=== PATIENT | female | born 1975 | race Caucasian/White ===

== ENCOUNTER 2017-04-01 20:04 | Emergency (ER) | payer MEDICAID ==
[2017-04-01 20:04] VITALS: PULSE 51; BMI 22.6
[2017-04-01] MEDS ORDERED: Aspirin 325 mg EC Tablets PO STA (20:25)
--- NOTE | 2017-04-01 20:25 | C.PDOC ---
History Of Present Illness Patient presents to the ER with a complaint of intermittent, dull, aching, chest pain for the past 3 days. Patient is currently speaking in complete sentences; denies fever, chills, nausea, vomiting, or SOB. Time Seen by Provider: 04/01/17 20:24 Chief Complaint (Nursing): Chest Pain History Per: Patient History/Exam Limitations: no limitations Onset/Duration Of Symptoms: Days, Intermittent Episodes Current Symptoms Are (Timing): Still Present Severity: Moderate Pain Scale Rating Of: 4 Quality: Dull, Aching Associated Symptoms: denies: Nausea, Dyspnea, Diaphoresis Modifying Factors: None Exacerbating Factors: None Alleviating Factors: None Recent travel outside of the [place]: No Additional History Per: Family Past Medical History Reviewed: Historical Data, Nursing Documentation, Vital Signs Vital Signs: Last Vital Signs Temp 98 F 04/01/17 20:13 Pulse 55 L 04/01/17 21:39 Resp 20 04/01/17 21:39 BP 123/63 04/01/17 21:39 Pulse Ox 100 04/01/17 21:39 - Medical History PMH: Anemia, At[facility] DRAINAGE OF PERITONEAL CAVITY, PERCUTANEOUS APPROACH (09/21/15) EXCISION OF STOMACH, ENDO, DIAGN (09/21/15) ULTRASONOGRAPHY OF RIGHT AND LEFT HEART, TRANSESOPHAGEAL (09/21/15) Family History: States: No Known Family Hx - Social History Hx Tobacco Use: No Hx Alcohol Use: No Hx Substance Use: No - Immunization History Hx Tetanus Toxoid Vaccination: No Hx Influenza Vaccination: No Hx Pneumococcal Vaccination: No Review Of Systems Constitutional: Negative for: Fever, Chills Cardiovascular: Positive for: Chest Pain Respiratory: Negative for: Shortness of Breath Gastrointestinal: Negative for: Nausea, Vomiting Physical Exam - Physical Exam Appears: Non-toxic Skin: Warm, Dry Head: Normacephalic Eye(s): bilateral: Normal Inspection Oral Mucosa: Moist Neck: Trachea Midline, Supple Chest: Symmetrical, No Tenderness Cardiovascular: Rhythm Irregular (w/ click) Respiratory: No Rales, No Rhonchi, No Wheezing Gastrointestinal/Abdominal: Soft, No Tenderness Back: No CVA Tenderness Extremity: No Tenderness Extremity: Bilateral: Atraumatic, Normal Color And Temperature Pulses: Left Dorsalis Pedis: Normal, Right Dorsalis Pedis: Normal Neurological/Psych: Oriented x3, Normal Speech, Normal Cognition Gait: Steady ED Course And Treatment - Laboratory Results Result Diagrams: 04/01/17 20:32 04/01/17 20:32 ECG: Interpreted By Me, Viewed By Me ECG Rhythm: Atrial Fibrillation (63), Nonspecific Changes O2 Sat by Pulse Oximetry: 98 Pulse Ox Interpretation: Normal - Radiology CXR: Interpreted by Me, Viewed By Me CXR Interpretation: Yes: Other (top nl heart, pacerleft, mv ring in place). No : Infiltrates, Fracture, Pnemothorax Progress Note: EKG, blood work, CXR, and urinalysis ordered. Ecotrin administered. pt signed ama form . states she is leaving the country tomorrow, and does not want to stay. Understood all the risks as I've explained at length , and she still signed the AMA form. Son helped translate HIPAA compliant. encouraged to return Reevaluation Time: 22:26 Reassessment Condition: Improved Against Medical Advice - AMA Patient Left Against Medical Advice: The patient declines admission to the hospital and wishes to leave the Emergency Department. This action is against my medical advice. This decision was made with informed refusal. The patient was told that admission to the hospital is necessary. Explanation of the reasons why were discussed. The risks of leaving were explained to the patient and include, but are not limited to, worsening of known or currently unknown conditions, permanent disability and from undiagnosed or untreated conditions. The patient has the capacity to make this informed decision and understands my explanation of the current medical problem and risks of leaving. The patient voluntarily accepts these risks and signed an AMA form documenting our conversation. The patient was given the opportunity to ask questions and reconsider. The patient was encouraged to return to the Emergency Department at any time for further care. Disposition Counseled Patient/Family Regarding: Studies Performed, Diagnosis, Need For Followup - Disposition Referrals: [facility] [Outside] [facility] [Outside] Disposition: AGAINST MEDICAL ADVICE Disposition Time: 20:24 Condition: FAIR Instructions: Chest Pain (DC), Heart Failure (DC) Forms: [facility] (Pashto) - Clinical Impression Clinical Impression: Chest pain, CHF (congestive heart failure) - Scribe Statement The provider has reviewed the documentation as recorded by the Scribe Santos Lopez All medical record entries made by the Scribe were at my direction and personally dictated by me. I have reviewed the chart and agree that the record accurately reflects my personal performance of the history, physical exam, medical decision making, and the department course for this patient. I have also personally directed, reviewed, and agree with the discharge instructions and disposition.
[2017-04-01] MEDS ORDERED: Aspirin 325 mg EC Tablets PO ONE (20:34)
[2017-04-01 20:35] LABS: BASO # 0.1 K/uL (0.0-0.2); EOS # 1.1 K/uL (0.0-0.7); EOS % 10.8 % (0.0-4.0); HEMOGLOBIN 12.6 g/dL (11.0-16.0); LYMPH # 2.7 K/uL (1.0-4.3); LYMPH % 25.6 % (20.0-40.0); MEAN CELL VOLUME 83.4 fL (81.0-99.0); MEAN CORPUSCULAR HEMOGLOBIN 27.8 pg (27.0-31.0); MEAN CORPUSCULAR HGB CONC 33.3 g/dL (33.0-37.0); MEAN PLATELET VOLUME 7.8 fL (7.2-11.7); MONO # 0.5 K/uL (0.0-0.8); MONO % 4.5 % (0.0-10.0); NEUT % 58.1 % (50.0-75.0); NRBC % 0.1 % (0.0-2.0); RBC 4.52 Mil/uL (3.80-5.20); RED CELL DISTRIBUTION WIDTH 19.4 % (11.5-14.5); WHITE BLOOD COUNT 10.3 K/uL (4.8-10.8)
[2017-04-01 20:43] LABS: ALBUMIN 4.3 g/dL (3.5-5.0); INR 1.8; PROTHROMBIN TIME 21.3 SECONDS (9.7-12.2)
[2017-04-01 20:45] LABS: GFR AFRICAN-AMERICAN > 60; GFR NON-AFRICAN AMERICAN > 60
[2017-04-01 20:46] LABS: ALT/SGPT 47 U/L (9-52); AST/SGOT 43 U/L (14-36); BLOOD UREA NITROGEN 11 mg/dL (7-17)
[2017-04-01 21:19] LABS: B-TYPE NATRIURETIC PEPTIDE 1110 pg/mL (0-450)
[2017-04-01 21:40] VITALS: BP 123/63; PULSE 55
[2017-04-01 22:36] VITALS: RESP 16; TEMP 97; O2SAT 100
--- NOTE | 2017-04-02 08:08 | CARD ---
APPROVED REPORT EKG Measurement Heart [id number] <Conclusion> Atrial fibrillation Abnormal ECG
--- NOTE | 2017-04-02 09:00 | RAD ---
HISTORY: BED 6 CHEST PAIN COMPARISON: 07/15/2016 FINDINGS: LUNGS: Mild venous congestion. Right hilar prominence. PLEURA: No significant pleural effusion identified, no pneumothorax apparent. CARDIOVASCULAR: Mild cardiomegaly. Status post median sternotomy and prior valve replacement. Left-sided pacemaker. OSSEOUS STRUCTURES: No significant abnormalities. VISUALIZED UPPER ABDOMEN: Normal. OTHER FINDINGS: None. IMPRESSION: Mild venous congestion.
== END 2017-04-01 22:38 | disposition left against medical advice (07) ==
LOC: C.ER 20:04
DX: I50.9 Heart failure, unspecified (principal); R07.9 Chest pain, unspecified
CPT/HCPCS: 71010; 80053; 83880; 84484; 85025; 85610; 85730; 93005; 96374; 99285; J1940

== ENCOUNTER 2017-04-28 19:35 | Inpatient (IN) | payer MEDICAID ==
[2017-04-28 19:36] VITALS: BMI 22.6
--- NOTE | 2017-04-28 20:14 | C.PDOC ---
History Of Present Illness 41 yo female presents to the ED with complaints of chest pain for the last four days and abdominal distention; she describes chest pain as an intermittent pressure sensation. At baseline, patient experiences SOB while laying flat and on exertion but reports currently she does not have worsened SOB. Patient recently returned from [place] one week ago. She denies abdominal pain, cough , fever, vomiting, diarrhea, dysuria/hematuria. Patient has a hx of AFib (on Coumadin, Digoxin), anemia, and mechanical mitral valve replacement. PMD Dr. Elmer Christiansen (does not admit) Cardio Dr. Norman Time Seen by Provider: 04/28/17 19:53 Chief Complaint (Nursing): Chest Pain History Per: Patient History/Exam Limitations: no limitations Onset/Duration Of Symptoms: Days (chest pain present for the last 4 days. ), Intermittent Episodes Current Symptoms Are (Timing): Still Present Quality: Pressure (chest pain) Associated Symptoms: denies: Nausea Modifying Factors: None Exacerbating Factors: None Alleviating Factors: None Recent travel outside of the [place]: Yes ([place]; returned 1 week ago.) Past Medical History Reviewed: Historical Data, Nursing Documentation, Vital Signs Vital Signs: Last Vital Signs Temp 98.3 F 04/28/17 19:43 Pulse 52 L 04/28/17 23:02 Resp 16 04/28/17 23:02 BP 128/61 04/28/17 23:02 Pulse Ox 100 04/28/17 23:22 - Medical History PMH: Anemia, Atrial Fibrillation Other PMH: mechical mitral valve replacement in 1999. Surgical History: Pacemaker Other Surgeries: mitral valve repair - [facility] Procedures DRAINAGE OF PERITONEAL CAVITY, PERCUTANEOUS APPROACH (09/21/15) EXCISION OF STOMACH, ENDO, DIAGN (09/21/15) ULTRASONOGRAPHY OF RIGHT AND LEFT HEART, TRANSESOPHAGEAL (09/21/15) Family History: States: No Known Family Hx - Social History Hx Tobacco Use: No Hx Alcohol Use: No Hx Substance Use: No - Immunization History Hx Tetanus Toxoid Vaccination: No Hx Influenza Vaccination: No Hx Pneumococcal Vaccination: No Review Of Systems Except As Marked, All Systems Reviewed And Found Negative. Constitutional: Negative for: Fever, Chills Cardiovascular: Positive for: Chest Pain. Negative for: Palpitations Respiratory: Positive for: Shortness of Breath (at baseline, no worse than usual ). Negative for: Cough Gastrointestinal: Positive for: Other (complaints of abd distention, but no abd pain. ). Negative for: Nausea, Vomiting, Abdominal Pain, Diarrhea Genitourinary: Negative for: Dysuria, Hematuria Physical Exam - Physical Exam Appears: Well, Non-toxic, Other (mildly uncomfortable. speaking in complete sentences) Skin: Normal Color, Warm, Dry, No Rash Head: Normacephalic Oral Mucosa: Moist Chest: Other (midline sternotomy scar) Cardiovascular: Murmur (4/6 systolic murmur. ) Respiratory: Normal Breath Sounds, No Rales, No Rhonchi, No Wheezing Gastrointestinal/Abdominal: Bowel Sounds, Soft, No Tenderness, Distention Extremity: Normal ROM (x4), No Pedal Edema, No Calf Tenderness Pulses: Left Dorsalis Pedis: Normal, Right Dorsalis Pedis: Normal Neurological/Psych: Oriented x3 ED Course And Treatment - Laboratory Results Result Diagrams: 04/28/17 20:18 04/28/17 20:18 ECG: Interpreted By Me, Viewed By Me ECG Rhythm: Atrial Fibrillation ECG Interpretation: No Changes From Prior (from 04/01/2017. ) Interpretation Of ECG: Normal axis, ST depression at leads II, III, avf, v5, v6. Rate From EC O2 Sat by Pulse Oximetry: 100 (Room air) Pulse Ox Interpretation: Normal - CT Scan/US CTA CHEST Other Rad Studies (CT/US): Read By Radiologist, Radiology Report Reviewed CT/US Interpretation: EXAM: CT Angiography Chest With Intravenous Contrast. CLINICAL HISTORY: 41 years old, female; Pain; Chest pain; Type not specified; Additional info: Cp, recent travel, ddimer. elevated, R/O pe. TECHNIQUE: Axial computed tomographic angiography images of the chest with intravenous contrast using. pulmonary embolism protocol. All CT scans at this facility use one or more dose reduction. techniques, viz.: automated exposure control; ma/ kV adjustment per patient size (including targeted. exams where dose is matched to indication; i.e. head); or iterative reconstruction technique. MIP reconstructed images were created and reviewed. Coronal and sagittal reformatted images were created and reviewed. CONTRAST: 100 mL of [id number] administered intravenously. COMPARISON: No relevant prior studies available. FINDINGS: Limitations: Motion artifact - mild. Pulmonary arteries: Enlargement of pulmonary trunk, up to 3.7 cm. No definite pulmonary. embolism. Aorta: No aneurysm. No dissection. Inferior vena cava: Retrograde filling of IVC and hepatic veins. [facility]. [employer] [facility] [employer]. Final Radiology Report [id number]. Name: VIRGINIA QUINTEROS Age: 41Years F Date: 2016. SSN: [id number] : 1975. Study: CTA CHEST Requesting Physician: MASON HANDY. Images: 901. Addl Studies: Provided Clinical History: CP, RECENT TRAVEL, DDIMER ELEVATED, R /O PE. CONFIDENTIALITY STATEMENT. This transmission is confidential and is intended to be a privileged communication. It is intended only for the use of the addressee. Access to this. message by anyone else is unauthorized. If you are not the intended recipient, any disclosure, copying, distribution or any action taken, or omitted to. be taken in reliance on it is prohibited and may be unlawful. If you received this communication in error, please notify us by telephone, so that return. of this document to us can be arranged. Page 2 of 2. Lungs: Minimal peripheral atelectasis/scarring. No consolidation. 0.3 cm RIGHT middle lobe. nodule. Pleural space: No significant effusion. No pneumothorax. Heart: [id number] cardiomegaly. No significant pericardial effusion. Valve replacement. Thyroid: 1.3 x 0.8 x 1.5 cm periphery calcified nodule LEFT lobe of thyroid. Bones/joints: Median sternotomy. No acute fracture. Soft tissues: Unremarkable. Lymph nodes: No pathologically enlarged lymph nodes. Tubes, lines and devices: LEFT pacemaker. IMPRESSION: 1. No definite CT evidence of pulmonary embolism. 2. Pulmonary hypertension. 3. Thyroid nodule. Followup as clinically warranted. 4. Pulmonary nodule. For low- risk patients, no follow-up is necessary. For high-risk patients. (smoking history or other known risk factors) an optional CT at 12 months could be performed. 5. Incidental/non-acute findings are described above. Thank you for allowing us to participate in the care of your patient. Dictated and Authenticated by: Adams Cates MD. 04/28/2017 10:18 PM Eastern Time ([place] & [place]) Progress Note: Blood work, EKG, CXR ordered and reviewed. D-dimer elevated, CTA chest ordered to r/o PE (patient recently travelled from [place]). Patient states she took one ASA 81mg this morning, has not taken her [place] today - will order. Digoxin level low, PO Digoxin also ordered. Reevaluation Time: 22:20 Reassessment Condition: Improved (Patient resting more comfortably, states she is feeling better.) - Physician Consult Information Physician Contacted: Inderjit Torres Outcome Of Conversation: Discussed patient with medicine environmental health sanitarian Dr. Alexis Torres, he agrees with telemetry admission with Dr. Norman for cardiology. Medical Decision Making Medical Decision Making: Wells' Criteria for Pulmonary Embolism from [employer] on 04/28/2017 All calculations should be rechecked by clinician prior to use RESULT SUMMARY: 0.0 points Low risk group: 1.3% chance of PE in an ED population. Another study assigned scores 4 as PE Unlikely and had a 3% incidence of PE. INPUTS: Clinical signs and symptoms of DVT > 0 = No PE is #1 diagnosis OR equally likely > 0 = No Heart rate > 100 > 0 = No Immobilization at least 3 days OR surgery in the previous 4 weeks > 0 = No Previous, objectively diagnosed PE or DVT > 0 = No Hemoptysis > 0 = No Malignancy w/ treatment within 6 months or palliative > 0 = No differential diagnoses considered: DC/ACS, PE, pneumonia, COPD/asthma, CHF, mechanical valve failure/problem, musculoskeletal pain, shingles, aortic dissection, gastritis, PUD, GERD, pancreatitis. Disposition - Disposition Disposition: HOSPITALIZED Disposition Time: 22:35 Condition: STABLE - Clinical Impression Clinical Impression: Chest pain, Mechanical heart valve present, Atrial fibrillation, Elevated brain natriuretic peptide (BNP) level - Scribe Statement The provider has reviewed the documentation as recorded by the Scribe sAhlyn Howard All medical record entries made by the Scribe were at my direction and personally dictated by me. I have reviewed the chart and agree that the record accurately reflects my personal performance of the history, physical exam, medical decision making, and the department course for this patient. I have also personally directed, reviewed, and agree with the discharge instructions and disposition. Decision To Admit - Pt Status Changed To: Hospital Disposition Of: Inpatient - Admit Certification Admit to Inpatient:: After my assessment, the patient will require hospitalization for at least two midnights. This is because of the severity of symptoms shown, intensity of services needed, and/or the medical risk in this patient being treated as an outpatient. - InPatient: Physician Admission Certification: I certify that this patient requires 2 or more midnights of care for the following reason:: see notes - . Bed Request Type: Telemetry Admitting Physician: Inderjit Torres Patient Diagnosis: Chest pain, Mechanical heart valve present, Atrial fibrillation, Elevated brain natriuretic peptide (BNP) level
[2017-04-28 20:29] LABS: BASO # 0.1 K/uL (0.0-0.2); BASO % 0.6 % (0.0-2.0); EOS # 1.3 K/uL (0.0-0.7); EOS % 13.5 % (0.0-4.0); HEMATOCRIT 38.4 % (34.0-47.0); LYMPH % 20.9 % (20.0-40.0); MEAN CORPUSCULAR HEMOGLOBIN 28.8 pg (27.0-31.0); MEAN CORPUSCULAR HGB CONC 33.7 g/dL (33.0-37.0); MEAN PLATELET VOLUME 7.8 fL (7.2-11.7); MONO # 0.4 K/uL (0.0-0.8); MONO % 4.5 % (0.0-10.0); RED CELL DISTRIBUTION WIDTH 18.6 % (11.5-14.5); WHITE BLOOD COUNT 9.7 K/uL (4.8-10.8)
[2017-04-28 20:32] LABS: MEAN CELL VOLUME 85.6 fL (81.0-99.0)
[2017-04-28 20:37] LABS: ALKALINE PHOSPHATASE 93 U/L (38-126); ALT/SGPT 45 U/L (9-52); AST/SGOT 42 U/L (14-36); BILIRUBIN,TOTAL 0.7 mg/dL (0.2-1.3); BLOOD UREA NITROGEN 9 mg/dL (7-17); CALCIUM 9.3 mg/dl (8.6-10.4); CARBON DIOXIDE 26 mmol/L (22-30); CHLORIDE 102 mmol/L (98-107); GFR AFRICAN-AMERICAN > 60; GLUCOSE,RANDOM 153 mg/dL (65-105); POTASSIUM 3.8 mmol/L (3.6-5.2); SODIUM 140 mmol/L (132-148); TOTAL PROTEIN 8.2 g/dL (6.3-8.3)
[2017-04-28 20:42] LABS: INR 2.8
[2017-04-28 20:46] LABS: URINE BILIRUBIN NEGATIVE (NEGATIVE); URINE COLOR Colorless (YELLOW); URINE GLUCOSE (UA) NORMAL (Normal); URINE KETONE NEGATIVE (NEGATIVE); URINE LEUKOCYTE ESTERASE NEG Leu/uL (Negative); URINE PROTEIN NEGATIVE (NEGATIVE); URINE UROBILINOGEN NORMAL mg/dL (0.2-1.0)
[2017-04-28 20:49] LABS: RBC URINE 1 /hpf (0-3); URINE BLOOD TRACE (NEGATIVE)
[2017-04-28] MEDS ORDERED: Iodixanol 320 MG/ML 100 ML BOTTLE IV ONE (21:36)
--- NOTE | 2017-04-28 22:18 | CT ---
EXAM: CT Angiography Chest With Intravenous Contrast CLINICAL HISTORY: 41 years old, female; Pain; Chest pain; Type not specified; Additional info: Cp, recent travel, ddimer elevated, R/O pe TECHNIQUE: Axial computed tomographic angiography images of the chest with intravenous contrast using pulmonary embolism protocol. All CT scans at this facility use one or more dose reduction techniques, viz.: automated exposure control; ma/kV adjustment per patient size (including targeted exams where dose is matched to indication; i.e. head); or iterative reconstruction technique. MIP reconstructed images were created and reviewed. Coronal and sagittal reformatted images were created and reviewed. CONTRAST: 100 mL of [id number] administered intravenously. COMPARISON: No relevant prior studies available. FINDINGS: Limitations: Motion artifact - mild. Pulmonary arteries: Enlargement of pulmonary trunk, up to 3.7 cm. No definite pulmonary embolism. Aorta: No aneurysm. No dissection. Inferior vena cava: Retrograde filling of IVC and hepatic veins. Lungs: Minimal peripheral atelectasis/scarring. No consolidation. 0.3 cm RIGHT middle lobe nodule. Pleural space: No significant effusion. No pneumothorax. Heart: Ldia-gl-morjpqwc cardiomegaly. No significant pericardial effusion. Valve replacement. Thyroid: 1.3 x 0.8 x 1.5 cm periphery calcified nodule LEFT lobe of thyroid. Bones/joints: Median sternotomy. No acute fracture. Soft tissues: Unremarkable. Lymph nodes: No pathologically enlarged lymph nodes. Tubes, lines and devices: LEFT pacemaker. IMPRESSION: 1. No definite CT evidence of pulmonary embolism. 2. Pulmonary hypertension. 3. Thyroid nodule. Followup as clinically warranted. 4. Pulmonary nodule. For low-risk patients, no follow-up is necessary. For high-risk patients (smoking history or other known risk factors) an optional CT at 12 months could be performed. 5. Incidental/non-acute findings are described above.
[2017-04-28] MEDS ORDERED: Digoxin 250 mcg (0.25 mg) Tab PO STA (22:25)
[2017-04-28] MEDS ORDERED: Digoxin 250 mcg (0.25 mg) Tab ONE (22:29)
--- NOTE | 2017-04-28 23:48 | CP.PCM.HP ---
Present on Admission - Present on Admission Any Indicators Present on Admission: No Past Patient History - Infectious Disease Hx of Infectious Diseases: None - Tetanus Immunizations Tetanus Immunization: Unknown - Past Medical History & Family History Past Medical History?: Yes - Past Social History Smoking Status: Never Smoked - CARDIAC Hx Atrial Fibrillation: Yes Hx Pacemaker: Yes - PULMONARY Hx Respiratory Disorders: No - NEUROLOGICAL Hx Neurological Disorder: No - HEENT Hx HEENT Problems: No - RENAL Hx Chronic Kidney Disease: No - ENDOCRINE/METABOLIC Hx Endocrine Disorders: No - HEMATOLOGICAL/ONCOLOGICAL Hx Anemia: Yes - INTEGUMENTARY Hx Dermatological Problems: No - MUSCULOSKELETAL/RHEUMATOLOGICAL Hx Falls: No - GASTROINTESTINAL Hx Gastrointestinal Disorders: No - GENITOURINARY/GYNECOLOGICAL Hx Genitourinary Disorders: No - PSYCHIATRIC Hx Substance Use: No - SURGICAL HISTORY Hx Coronary Artery Bypass Graft: Yes - ANESTHESIA Hx Anesthesia: Yes Hx Anesthesia Reactions: No Hx Malignant Hyperthermia: No Meds Allergies/Adverse Reactions: Allergies Allergy/AdvReac Type Severity Reaction Status Date / Time No Known Allergies Allergy Verified 04/28/17 19:40 Results - Vital Signs Recent Vital Signs: Last Vital Signs Temp 98.3 F 04/28/17 19:43 Pulse 52 L 04/28/17 23:02 Resp 16 04/28/17 23:02 BP 128/61 04/28/17 23:02 Pulse Ox 100 04/28/17 23:22 - Labs Result Diagrams: 04/28/17 20:18 04/28/17 20:18 Labs: Laboratory Results - last 24 hr 04/28/17 23:05 NT-Pro-B Natriuret Pep 935 H
--- NOTE | 2017-04-29 07:48 | RAD ---
PROCEDURE: CHEST RADIOGRAPH, 1 VIEW HISTORY: cp, sob COMPARISON: Portable chest 04/01/2017. FINDINGS: LUNGS: No acute infiltrate or pleural effusion identified bilaterally. There is no pneumothorax. Pacemaker/ implanted defibrillator again identified. PLEURA: As above. CARDIOVASCULAR: Stable cardiomegaly. No pulmonary vascular derangement. OSSEOUS STRUCTURES: No significant abnormalities. VISUALIZED UPPER ABDOMEN: Normal. OTHER FINDINGS: None. IMPRESSION: Stable cardiomegaly. No acute infiltrate pleural effusion or pulmonary vascular derangement.
[2017-04-29] MEDS ORDERED: [UNRECOGNIZED DRUG - OTHER] PO SCH (10:00)
[2017-04-29] MEDS ORDERED: Digoxin 250 mcg (0.25 mg) Tab PO SCH (10:00)
[2017-04-29] MEDS ORDERED: IRON PS CMPLX PO SCH (10:00)
[2017-04-29] MEDS ORDERED: VIT B12 PO SCH (10:00)
[2017-04-29] MEDS: Potassium Chloride 10 mEq ER Tab PO SCH (10:50)
[2017-04-29] MEDS: Pantoprazole 40 mg EC Tab PO SCH (10:50)
[2017-04-29 12:19] LABS: INR 2.9
[2017-04-29] MEDS: Digoxin 250 mcg (0.25 mg) Tab PO SCH (17:46)
--- NOTE | 2017-04-29 18:27 | CP.PCM.PN ---
Subjective - Date & Time of Evaluation Date of Evaluation: 04/29/17 Time of Evaluation: 11:20 - Subjective Subjective: clinically same Objective - Vital Signs/Intake and Output Vital Signs (last 24 hours): Temp Pulse Resp BP Pulse Ox 98.1 F 59 L 18 112/62 98 04/29/17 15:20 04/29/17 15:52 04/29/17 15:20 04/29/17 15:20 04/29/17 15:20 Intake and Output: 04/29/17 04/29/17 06:59 18:59 Intake Total 400 Balance 400 - Medications Medications: Current Medications Aspirin (Ecotrin) 81 mg PO DAILY [facility] Last Admin: 04/29/17 11:59 Dose: 81 mg Digoxin (Lanoxin) 0.25 mg PO DAILY@1800 [facility] Last Admin: 04/29/17 17:46 Dose: 0.25 mg Enalapril Maleate (Vasotec) 2.5 mg PO DAILY [facility] Last Admin: 04/29/17 11:00 Dose: Not Given Furosemide (Lasix) 40 mg PO DAILY [facility] Last Admin: 04/29/17 11:00 Dose: Not Given Home Med (Iron Ps Cmplx/Vit B12/Fa [Iferex 150 Forte Capsule]) 1 cap PO DAILY [facility] Home Med (Sildenafil [Revatio]) 20 mg PO TID [facility] Pantoprazole Sodium (Protonix Ec Tab) 40 mg PO DAILY [facility] Last Admin: 04/29/17 10:50 Dose: 40 mg Potassium Chloride (Klor-Con 10) 10 meq PO DAILY [facility] Last Admin: 04/29/17 10:50 Dose: 10 meq - Labs Labs: PT 34.3 SECONDS (9.7-12.2) H* 04/29/17 12:10 INR 2.9 04/29/17 12:10 APTT 44 SECONDS (21-34) H 04/28/17 20:18 - Constitutional Appears: Well - Head Exam Head Exam: ATRAUMATIC, NORMAL INSPECTION, NORMOCEPHALIC - Eye Exam Eye Exam: EOMI, Normal appearance, PERRL Pupil Exam: NORMAL ACCOMODATION, PERRL - ENT Exam ENT Exam: Mucous Membranes Moist, Normal Exam - Neck Exam Neck Exam: Full ROM, Normal Inspection. absent: Lymphadenopathy - Respiratory Exam Respiratory Exam: Decreased Breath Sounds - Cardiovascular Exam Cardiovascular Exam: REGULAR RHYTHM, +S1, +S2 - GI/Abdominal Exam GI & Abdominal Exam: Soft, Diminished Bowel Sounds - Rectal Exam Rectal Exam: Deferred
[2017-04-30 01:50] VITALS: RESP 20
[2017-04-30] MEDS: Potassium Chloride 10 mEq ER Tab PO SCH (09:44)
[2017-04-30] MEDS: Pantoprazole 40 mg EC Tab PO SCH (09:44)
--- NOTE | 2017-04-30 14:35 | CP.PCM.PN ---
Subjective - Date & Time of Evaluation Date of Evaluation: 04/30/17 Time of Evaluation: 12:20 - Subjective Subjective: clinically same Objective - Vital Signs/Intake and Output Vital Signs (last 24 hours): Temp Pulse Resp BP Pulse Ox 97.6 F 56 L 20 114/53 L 97 04/30/17 08:34 04/30/17 11:30 04/30/17 08:34 04/30/17 11:31 04/30/17 08:34 - Medications Medications: Current Medications Acetaminophen (Tylenol 325mg Tab) 650 mg PO Q6 PRN PRN Reason: Pain Last Admin: 04/30/17 13:06 Dose: 650 mg Aspirin (Ecotrin) 81 mg PO DAILY [facility] Last Admin: 04/30/17 09:44 Dose: 81 mg Digoxin (Lanoxin) 0.25 mg PO DAILY@1800 [facility] Last Admin: 04/29/17 17:46 Dose: 0.25 mg Enalapril Maleate (Vasotec) 2.5 mg PO DAILY [facility] Last Admin: 04/30/17 11:31 Dose: Not Given Furosemide (Lasix) 40 mg PO DAILY [facility] Last Admin: 04/30/17 09:44 Dose: 40 mg Home Med (Iron Ps Cmplx/Vit B12/Fa [Iferex 150 Forte Capsule]) 1 cap PO DAILY [facility] Home Med (Sildenafil [Revatio]) 20 mg PO TID [facility] Pantoprazole Sodium (Protonix Ec Tab) 40 mg PO DAILY [facility] Last Admin: 04/30/17 09:44 Dose: 40 mg Potassium Chloride (Klor-Con 10) 10 meq PO DAILY [facility] Last Admin: 04/30/17 09:44 Dose: 10 meq - Labs Labs: PT 34.3 SECONDS (9.7-12.2) H* 04/29/17 12:10 INR 2.9 04/29/17 12:10 APTT 44 SECONDS (21-34) H 04/28/17 20:18 - Constitutional Appears: Well - Head Exam Head Exam: ATRAUMATIC, NORMAL INSPECTION, NORMOCEPHALIC - Eye Exam Eye Exam: EOMI, Normal appearance, PERRL Pupil Exam: NORMAL ACCOMODATION, PERRL - ENT Exam ENT Exam: Mucous Membranes Moist, Normal Exam - Neck Exam Neck Exam: Full ROM, Normal Inspection. absent: Lymphadenopathy - Respiratory Exam Respiratory Exam: Decreased Breath Sounds - Cardiovascular Exam Cardiovascular Exam: REGULAR RHYTHM, +S1, +S2 - GI/Abdominal Exam GI & Abdominal Exam: Soft, Diminished Bowel Sounds - Rectal Exam Rectal Exam: Deferred
[2017-04-30 17:12] VITALS: BP 105/64; PULSE 57; TEMP 98.1; O2SAT 98
--- NOTE | 2017-04-30 17:53 | CP.PCM.CON ---
History of Present Illness - History of Present Illness History of Present Illness: Middle aged female with history of MVR, Atrial fibrillation, LV systolic dysfunction who came in for abdominal pain, jaquez an episode of bradycardia. Complains of some abdominal discomfort. But otherwise feeling OK. Past Patient History - Infectious Disease Hx of Infectious Diseases: None - Tetanus Immunizations Tetanus Immunization: Unknown - Past Medical History & Family History Past Medical History?: Yes - Past Social History Smoking Status: Never Smoked - CARDIAC Hx Atrial Fibrillation: Yes Hx Pacemaker: Yes - PULMONARY Hx Respiratory Disorders: No - NEUROLOGICAL Hx Neurological Disorder: No - HEENT Hx HEENT Problems: No - RENAL Hx Chronic Kidney Disease: No - ENDOCRINE/METABOLIC Hx Endocrine Disorders: No - HEMATOLOGICAL/ONCOLOGICAL Hx Anemia: Yes - INTEGUMENTARY Hx Dermatological Problems: No - MUSCULOSKELETAL/RHEUMATOLOGICAL Hx Falls: No - GASTROINTESTINAL Hx Gastrointestinal Disorders: No - GENITOURINARY/GYNECOLOGICAL Hx Genitourinary Disorders: No - PSYCHIATRIC Hx Substance Use: No - SURGICAL HISTORY Hx Surgeries: Yes Hx Valve Replacement: Yes (1999,2015) - ANESTHESIA Hx Anesthesia: Yes Hx Anesthesia Reactions: No Hx Malignant Hyperthermia: No Has any member of the family had a problem w/ anesthesia?: No Meds Allergies/Adverse Reactions: Allergies Allergy/AdvReac Type Severity Reaction Status Date / Time No Known Allergies Allergy Verified 04/28/17 19:40 - Medications Medications: Current Medications Acetaminophen (Tylenol 325mg Tab) 650 mg PO Q6 PRN PRN Reason: Pain Last Admin: 04/30/17 13:06 Dose: 650 mg Aspirin (Ecotrin) 81 mg PO DAILY [facility] Last Admin: 04/30/17 09:44 Dose: 81 mg Digoxin (Lanoxin) 0.25 mg PO DAILY@1800 [facility] Last Admin: 04/29/17 17:46 Dose: 0.25 mg Enalapril Maleate (Vasotec) 2.5 mg PO DAILY [facility] Last Admin: 04/30/17 11:31 Dose: Not Given Furosemide (Lasix) 40 mg PO DAILY [facility] Last Admin: 04/30/17 09:44 Dose: 40 mg Home Med (Iron Ps Cmplx/Vit B12/Fa [Iferex 150 Forte Capsule]) 1 cap PO DAILY [facility] Home Med (Sildenafil [Revatio]) 20 mg PO TID [facility] Pantoprazole Sodium (Protonix Ec Tab) 40 mg PO DAILY [facility] Last Admin: 04/30/17 09:44 Dose: 40 mg Potassium Chloride (Klor-Con 10) 10 meq PO DAILY JUNE Last Admin: 04/30/17 09:44 Dose: 10 meq Warfarin Sodium (Coumadin) 3 mg PO 1800 STA Stop: 04/30/17 17:49 Physical Exam - Head Exam Head Exam: NORMOCEPHALIC - Neck Exam Neck exam: Positive for: Normal Inspection - Respiratory Exam Respiratory Exam: Clear to Auscultation Bilateral, NORMAL BREATHING PATTERN - Cardiovascular Exam Cardiovascular Exam: Irregular Rhythm (Atrial fibrillation with rate controlled. ), Systolic Murmur (3/6 systolic murmur.) - Extremities Exam Extremities exam: Positive for: normal inspection - Neurological Exam Neurological exam: Alert, Oriented x3 Results - Vital Signs Recent Vital Signs: Last Vital Signs Temp 98.1 F 04/30/17 15:10 Pulse 57 L 04/30/17 15:10 Resp 20 04/30/17 15:10 BP 105/64 04/30/17 15:10 Pulse Ox 98 04/30/17 15:10 - Labs Result Diagrams: 04/28/17 20:18 04/28/17 20:18 - EKG Data EKG comments: Atrial Fibrillation. Rate controlled. Assessment & Plan (1) Atrial fibrillation Assessment and Plan: Rate controlled, continue therapeutic Anticoagulation. Status: Acute (2) Chest pain Assessment and Plan: Atypical. work-up is negative so far. Status: Acute (3) Mechanical heart valve present Assessment and Plan: Metal Mitral valve with normal auscultation on examination. Continue current care. If there are no new issues may D/C home from [facility]. will follow as out patient. Status: Acute
[2017-04-30] MEDS: Digoxin 250 mcg (0.25 mg) Tab PO SCH (18:09)
[2017-04-30 18:10] VITALS: PULSE 60
--- NOTE | 2017-05-02 00:35 | CARD ---
APPROVED REPORT EKG Measurement Heart [id number] <Conclusion> Atrial fibrillation Nonspecific ST and T wave abnormality Abnormal ECG
== END 2017-04-30 21:45 | disposition home or self-care (01) | DRG 139 ==
LOC: C.ER 19:35 → SUPCPDRO 19:35 → C.9E 22:36 → C.6T 22:54
PROVIDERS: ADMIT Internal Medicine Nephrology; ATTEND Internal Medicine Nephrology
DX: I48.91 Unspecified atrial fibrillation (principal); D64.9 Anemia, unspecified; Z95.4 Presence of other heart-valve replacement; Z95.1 Presence of aortocoronary bypass graft; Z79.01 Long term (current) use of anticoagulants; Z95.0 Presence of cardiac pacemaker

== ENCOUNTER 2018-02-06 14:18 | Emergency (ER) | payer MEDICAID ==
[2018-02-06 14:18] VITALS: PULSE 60; BMI 22.6
[2018-02-06 15:19] LABS: BASO # 0.1 K/uL (0.0-0.2); BASO % 0.6 % (0.0-2.0); EOS # 0.5 K/uL (0.0-0.7); EOS % 5.8 % (0.0-4.0); LYMPH # 1.4 K/uL (1.0-4.3); LYMPH % 15.8 % (20.0-40.0); MEAN CORPUSCULAR HEMOGLOBIN 27.7 pg (27.0-31.0); MEAN CORPUSCULAR HGB CONC 33.5 g/dL (33.0-37.0); MEAN PLATELET VOLUME 7.9 fL (7.2-11.7); MONO # 0.7 K/uL (0.0-0.8); MONO % 7.3 % (0.0-10.0); NEUT # 6.4 K/uL (1.8-7.0); NEUT % 70.5 % (50.0-75.0); RBC 3.84 Mil/uL (3.80-5.20); WHITE BLOOD COUNT 9.1 K/uL (4.8-10.8)
[2018-02-06 15:20] LABS: HEMOGLOBIN 10.6 g/dL (11.0-16.0); MEAN CELL VOLUME 82.9 fL (81.0-99.0)
[2018-02-06 15:30] LABS: ALBUMIN 4.1 g/dL (3.5-5.0); ALT/SGPT 33 U/L (9-52); AST/SGOT 34 U/L (14-36); BLOOD UREA NITROGEN 8 mg/dL (7-17); CALCIUM 8.8 mg/dl (8.6-10.4); GFR AFRICAN-AMERICAN > 60; GFR NON-AFRICAN AMERICAN > 60
--- NOTE | 2018-02-06 15:58 | C.PDOC ---
History Of Present Illness 42-year-old female, PMHx includes CABG and valve replacement, presents to the emergency department accompanied by daughter with complaints of pain and swelling in left leg for the past few days. Patient denies any chest pain. She states she has chronic shortness of breath. Denies nausea/vomiting, back pain, dizziness, recent travel, or any other associated symptoms. No other complaints at this time. Time Seen by Provider: 02/06/18 14:38 Chief Complaint (Nursing): Lower Extremity Problem/Injury History Per: Patient History/Exam Limitations: no limitations Past Medical History Reviewed: Historical Data, Nursing Documentation, Vital Signs Vital Signs: Last Vital Signs Temp 98.7 F 02/06/18 18:03 Pulse 52 L 02/06/18 18:03 Resp 18 02/06/18 18:03 BP 98/50 L 02/06/18 18:03 Pulse Ox 100 02/06/18 18:03 - Medical History PMH: Anemia, Atrial Fibrillation Surgical History: CABG (2000 2015), Pacemaker - [facility] Procedures DRAINAGE OF PERITONEAL CAVITY, PERCUTANEOUS APPROACH (09/21/15) EXCISION OF STOMACH, ENDO, DIAGN (09/21/15) ULTRASONOGRAPHY OF RIGHT AND LEFT HEART, TRANSESOPHAGEAL (09/21/15) Family History: States: No Known Family Hx - Social History Hx Tobacco Use: No Hx Alcohol Use: No Hx Substance Use: No - Immunization History Hx Tetanus Toxoid Vaccination: No Hx Influenza Vaccination: No Hx Pneumococcal Vaccination: No Review Of Systems Constitutional: Negative for: Fever, Chills Cardiovascular: Negative for: Chest Pain, Palpitations Respiratory: Positive for: Shortness of Breath Gastrointestinal: Negative for: Nausea, Vomiting Musculoskeletal: Positive for: Leg Pain. Negative for: Back Pain Neurological: Negative for: Weakness, Numbness, Headache, Dizziness Physical Exam - Physical Exam Appears: Non-toxic, No Acute Distress Skin: Normal Color, Warm, Dry, Ecchymosis Head: Atraumatic, Normacephalic Eye(s): bilateral: Normal Inspection, PERRL, EOMI Nose: Normal Oral Mucosa: Moist Lips: Normal Appearing Teeth: Other (poor dentition) Neck: Normal ROM, Supple Chest: Symmetrical Cardiovascular: Rhythm Regular, No Friction Rub, No Murmur Respiratory: Normal Breath Sounds, No Accessory Muscle Use Gastrointestinal/Abdominal: Soft, No Tenderness Extremity: Pedal Edema (Left lower extremity with +1 pitting edema.), Calf Tenderness (left), No Deformity Pulses: Left Dorsalis Pedis: Normal, Right Dorsalis Pedis: Normal Neurological/Psych: Oriented x3, Normal Speech, Normal Motor, Normal Sensation Gait: Steady ED Course And Treatment - Laboratory Results Result Diagrams: 02/06/18 15:15 02/06/18 15:15 O2 Sat by Pulse Oximetry: 98 (RA) Pulse Ox Interpretation: Normal Against Medical Advice - AMA Patient Left Against Medical Advice: The patient declines admission to the hospital and wishes to leave the Emergency Department. This action is against my medical advice. This decision was made with informed refusal. The patient was told that admission to the hospital is necessary. Explanation of the reasons why were discussed. The risks of leaving were explained to the patient and include, but are not limited to, worsening of known or currently unknown conditions, permanent disability and from undiagnosed or untreated conditions. The patient has the capacity to make this informed decision and understands my explanation of the current medical problem and risks of leaving. The patient voluntarily accepts these risks and signed an AMA form documenting our conversation. The patient was given the opportunity to ask questions and reconsider. The patient was encouraged to return to the Emergency Department at any time for further care. Medical Decision Making Medical Decision Making: Plan: * Bloodwork * Venous duplex scan * Reassess and Disposition Progress: Scan is negative for DVT. On re-evaluation, pt is bleeding from gingiva. Vitamin K ordered. She was advised admission to lower INR levels and further observation inpatient, but pt is refusing and states she would like to sign out against medical advice. Patient was informed the severity of being discharged. [employer] computer was used to translate and instruct the patient. Disposition - Disposition Referrals: Elias Christiansen MD [Medical Doctor] - Disposition: AGAINST MEDICAL ADVICE Disposition Time: 17:00 Condition: GUARDED Additional Instructions: Follow up with the medical doctor/clinic within 1-2 days, Return if worsened. Prescriptions: traMADol [Ultram] 50 mg PO Q6 PRN #10 tab PRN Reason: Pain Instructions: What to Do When Your INR Is Too High Forms: [facility] (Swedish) - Clinical Impression Clinical Impression: Coumadin toxicity, Bleeding gums - Scribe Statement The provider has reviewed the documentation as recorded by the Scribe (Zunaira Norman) All medical record entries made by the Scribe were at my direction and personally dictated by me. I have reviewed the chart and agree that the record accurately reflects my personal performance of the history, physical exam, medical decision making, and the department course for this patient. I have also personally directed, reviewed, and agree with the discharge instructions and disposition.
[2018-02-06 16:02] LABS: INR 10.7; PROTHROMBIN TIME 117.4 SECONDS (9.7-12.2)
[2018-02-06] MEDS ORDERED: Phytonadione 10 mg/ml Inj (Adult) IV SCH (16:45)
[2018-02-06] MEDS ORDERED: Phytonadione 10 mg/ml Inj (Adult) IV STA (16:45)
[2018-02-06] MEDS ORDERED: Phytonadione 10 mg/ml Inj (Adult) ONE (16:56)
[2018-02-06 18:08] VITALS: BP 98/50; PULSE 52; RESP 18; TEMP 98.7
[2018-02-06 18:14] VITALS: O2SAT 98
--- NOTE | 2018-02-07 09:35 | VASCLAB ---
PROCEDURE: Left Lower Extremity Venous Duplex Exam. HISTORY: Pain, Swelling PRIORS: None. TECHNIQUE: Left common femoral, femoral, popliteal and posterior tibial, peroneal and great saphenous veins were evaluated. Flow was assessed with color Doppler, compressibility, assessment of phasic flow and augmentation response. Report prepared by SEBASTIAN Floyd FINDINGS: LEFT: 1. Common Femoral Vein: 1.1. Compressibility - Fully compressible: Thrombus - None : Flow - Phasic: Augmentation -Normal: Reflux - None. 2. Femoral Vein: 2.1. Compressibility - Fully compressible: Thrombus - None: Flow - Phasic: Augmentation -Normal: Reflux - None. 3. Popliteal Vein: 3.1. Compressibility - Fully compressible: Thrombus - None: Flow - Phasic: Augmentation -Normal: Reflux - None. 4. Posterior Tibial Vein: 4.1. Compressibility - Fully compressible: Thrombus - None: Flow - Phasic: Augmentation -Normal: Reflux - None. 5. Peroneal Vein: 5.1. Compressibility - Fully compressible: Thrombus - None: Flow - Phasic: Augmentation -Normal: Reflux - None. 6. Great Saphenous Vein: 6.1. Compressibility - Fully compressible: Thrombus - None: Flow - Phasic: Augmentation - Normal: Reflux - None. OTHER FINDINGS: IMPRESSION: No evidence of deep or superficial vein thrombosis of the left lower extremity with excellent venous flow. Normal valve function noted of the left side. Normal venous flow noted in the right common femoral vein.
== END 2018-02-06 18:11 | disposition left against medical advice (07) ==
LOC: C.ER 14:18
DX: K06.8 Other specified disorders of gingiva and edentulous alveolar ridge (principal); T45.511A Poisoning by anticoagulants, accidental (unintentional), initial encounter
CPT/HCPCS: 80053; 85025; 85610; 85730; 93971; 96374; 99285; J3430